=== PATIENT | female | born 1960 | race Caucasian/White ===

== ENCOUNTER 2020-07-06 17:15 | Emergency (ER) | payer SELFPAY ==
[~2020-07-06] VITALS: Ht 160 cm; Wt 56.4 kg
[2020-07-06 17:18] VITALS: BP 130/77
--- NOTE | 2020-07-06 17:27 | NUR ---
Patient ambulated to bed 4. RN evaluating patient at bedside.
--- NOTE | 2020-07-06 17:38 | NUR ---
59 Y/O FEMALE BIB SELF C/O EPIGASTRIC DISCOMFORT X 10 DAYS. PT DENIES PAIN, VERBALIZED DISCOMFORT/PRESSURE AT LEVEL OF STERNUM, DOES NOT RADIATE. STATES BURNING SENSATION WHEN LAYING FLAT ON BACK. STATES NAUSEA/DENIES VOMITING. CANNOT EAT REGULARLY DUE TO NAUSEA. NORMOACTIVE BOWEL SOUNDS HEARD THROUGHOUT, STATES PRESENCE OF FLATUS/BELCHING. MECLIZINE TAKEN PRIOR TO HOSPITAL ARRIVAL TO ADDRESS NAUSEA. AO4, BREATHING EVEN AND UNALBORED, SKIN WARM AND DRY. BED IN LOWEST POSITION, LOCKED, X1 SIDERAIL UP. PMHX - ANXIETY, HDL, GERD NKA
[2020-07-06] MEDS ORDERED: ONDANSETRON 4 MG/2 ML VIAL IVP ONE (17:40)
[2020-07-06] MEDS ORDERED: KETOROLAC 30 MG/ML VIAL IVP ONE (17:40)
[2020-07-06] MEDS ORDERED: NACL 0.9% 500 ML IV ONE (17:40)
[2020-07-06 17:59] LABS: BASOPHILS % (AUTO) 0.8 % (0.0-2.0); EOSINOPHILS % (AUTO) 0.4 % (0.0-4.0); HEMATOCRIT 40.1 % (36-48); HEMOGLOBIN 13.5 g/dL (12.0-16.0); LYMPHOCYTES # (AUTO) 1.6 K/uL (2.5-16.5); MEAN CORPUSCULAR HEMOGLOBIN 33 pg (27-31); MEAN CORPUSCULAR HGB CONC 34 g/dL (33-37); MEAN CORPUSCULAR VOLUME 96.7 fL (80-94); MONOCYTES # (AUTO) 0.3 K/uL (0.8-1.0); MONOCYTES % (AUTO) 6.7 % (1.7-9.3); NEUTROPHILS % (AUTO) 60.1 % (42.2-75.2); PLATELET COUNT (AUTO) 180 K/uL (140-450); RED BLOOD CELL COUNT(AUTO) 4.15 MIL/uL (4.20-5.40); RED CELL DISTRIBUTION WIDTH 13.3 % (11.6-13.7)
[2020-07-06 18:16] LABS: ALBUMIN 4.3 g/dL (3.4-5.0); ANION GAP 12.5 (8-16); CARBON DIOXIDE 30.1 mmol/L (21-32); CREATININE 0.7 mg/dL (0.6-1.3); POTASSIUM 3.6 mmol/L (3.5-5.1); TOTAL BILIRUBIN 0.3 mg/dL (0.0-1.0)
[2020-07-06] MEDS ORDERED: PANTOPRAZOLE 40 MG INJ VIAL IVP ONE (18:40)
--- NOTE | 2020-07-06 18:46 | NUR ---
PT IN ROOM, AWAKE AND ALERT. NO APPARENT DISTRESS. WILL CONTINUE TO MONITOR.
--- NOTE | 2020-07-06 19:17 | NUR ---
ENDORSEMENT GIVEN TO IRENE GREEN FOR CONTINUATION OF CARE. TRANSFER OF CARE AT THIS POINT.
--- NOTE | 2020-07-06 19:18 | NUR ---
RECEIVED REPORT FROM IRENE DYSON FOR CONTINUITY OF CARE
[2020-07-06] MEDS ORDERED: PANT40EC PO (19:23)
[2020-07-06 20:32] VITALS: BP 130/77
--- NOTE | 2020-07-06 20:32 | NUR ---
Patient discharged with v/s stable. Written and verbal after care instructions given and explained. Patient alert, oriented and verbalized understanding of instructions. Ambulatory with steady gait. All questions addressed prior to discharge. ID band removed. Patient advised to follow up with PMD. Rx of PROTONIX given. Patient educated on indication of medication including possible reaction and side effects. Opportunity to ask questions provided and answered.
--- NOTE | 2020-07-07 22:09 | NUR ---
LATE ENTRY- NORMAL SALINE 0.9% DISCONTINUED AT 1900
== END 2020-07-06 20:32 | disposition home or self-care (01) ==
LOC: MED 17:15
DX: K29.70 Gastritis, unspecified, without bleeding (principal); K21.9 Gastro-esophageal reflux disease without esophagitis; Z79.899 Other long term (current) drug therapy; Z98.890 Other specified postprocedural states
CPT/HCPCS: 36415; 76705; 80053; 83690; 85025; 96361; 96374; 96375; 99284; C9113; J1885; J2405; J7030

== ENCOUNTER 2021-08-11 14:14 | Emergency (ER) | payer OTHER ==
[~2021-08-11] VITALS: Ht 153.7 cm; Wt 62.6 kg
[~2021-08-11 14:14] MED LIST: PANT40EC PO
[2021-08-11 14:34] VITALS: BP 115/84
--- NOTE | 2021-08-11 14:56 | NUR ---
PT AMBULATED TO ER BED 1
--- NOTE | 2021-08-11 15:22 | NUR ---
ASSUMED PATIENT CARE, NURSING ASSESSMENT COMPLETED.
[2021-08-11 15:39] LABS: BASOPHILS % (AUTO) 0.4 % (0.0-2.0); EOSINOPHILS % (AUTO) 0.4 % (0.0-4.0); HEMATOCRIT 41.1 % (36-48); HEMOGLOBIN 13.7 g/dL (12.0-16.0); LYMPHOCYTES % (AUTO) 16.6 % (20.5-51.1); MEAN CORPUSCULAR HEMOGLOBIN 32 pg (27-31); MEAN CORPUSCULAR HGB CONC 33 g/dL (33-37); MEAN CORPUSCULAR VOLUME 96.1 fL (80-94); MONOCYTES # (AUTO) 0.3 K/uL (0.8-1.0); MONOCYTES % (AUTO) 4.8 % (1.7-9.3); NEUTROPHILS # (AUTO) 4.7 K/uL (1.8-7.7); NEUTROPHILS % (AUTO) 77.8 % (42.2-75.2); PLATELET COUNT (AUTO) 188 K/uL (140-450); RED BLOOD CELL COUNT(AUTO) 4.28 MIL/uL (4.20-5.40); RED CELL DISTRIBUTION WIDTH 12.7 % (11.6-13.7); WHITE BLOOD COUNT (AUTO) 6.1 K/uL (4.8-10.8)
[2021-08-11 15:40] LABS: APPEARANCE,URINE CLEAR (CLEAR); BILIRUBIN,URINE NEGATIVE (NEGATIVE); BLOOD, URINE 1+ (NEGATIVE); LEUKOCYTE ESTERASE ,URINE NEGATIVE (NEGATIVE); NITRITE, URINE NEGATIVE (NEGATIVE); UGLUCOSE NEGATIVE (NEGATIVE)
[2021-08-11 15:42] LABS: COLOR,URINE STRAW (YELLOW)
[2021-08-11 15:58] LABS: RBC,URINE 0-5 /HPF (0-5); WBC,URINE NONE SEEN /HPF (0-5)
[2021-08-11 16:03] LABS: ALBUMIN 4.4 g/dL (3.4-5.0); ANION GAP 12.7 (8-16); ASPARTATE AMINOTRANSFERASE 19 U/L (15-37); CHLORIDE 102 mmol/L (98-107); CREATININE 0.7 mg/dL (0.6-1.3); GFR ARICAN-AMERICAN 111 mL/min (>90); GLUCOSE 93 mg/dL (74-106); POTASSIUM 3.7 mmol/L (3.5-5.1); SODIUM SERUM 140 mmol/L (136-145); TOTAL BILIRUBIN 0.5 mg/dL (0.0-1.0); UREA NITROGEN, BLOOD 12 mg/dL (7-18)
[2021-08-11] MEDS ORDERED: OMEP-278 PO (16:38)
--- NOTE | 2021-08-11 17:22 | NUR ---
Patient discharged with v/s stable. Written and verbal after care instructions given and explained. Patient alert, oriented and verbalized understanding of instructions. Ambulatory with steady gait. All questions addressed prior to discharge. ID band removed. Patient advised to follow up with PMD. Rx of OMEPRAZOLE given. Patient educated on indication of medication including possible reaction and side effects. Opportunity to ask questions provided and answered.
[2021-08-11 17:23] VITALS: BP 105/45
== END 2021-08-11 17:23 | disposition home or self-care (01) ==
LOC: MED 14:14
DX: K29.70 Gastritis, unspecified, without bleeding (principal); R53.1 Weakness; R19.5 Other fecal abnormalities; K21.9 Gastro-esophageal reflux disease without esophagitis; F41.9 Anxiety disorder, unspecified; E78.5 Hyperlipidemia, unspecified; Z98.890 Other specified postprocedural states; Z79.899 Other long term (current) drug therapy
CPT/HCPCS: 36415; 80053; 81001; 83605; 83690; 84484; 85025; 86886; 86900; 86901; 87040; 93005; 99284